=== PATIENT | female | born 1945 | race Caucasian/White ===

== ENCOUNTER 2018-10-02 14:10 | Observation (INO) | payer OTHER, BC ==
--- NOTE | 2018-10-02 14:57 | EDPHY ---
H & P Stated Complaint: High blood pressure, feels dehydrated and has nausea. Time Seen by Provider: 10/02/18 14:53 HPI/ROS: CHIEF COMPLAINT: Headache, nausea, vomiting HISTORY OF PRESENT ILLNESS: Patient is a 72-year-old man with a history of hypertension and high cholesterol who comes to the emergency department complaining of a mild headache for the last 2 days. She has also had nausea and began vomiting about an hour ago. She states that it is not the worst headache of her life but is close to it. It is been gradual in onset. She is here visiting from [place]. She presented to an urgent care this morning who supposed that symptoms were due to altitude sickness and treat her with Zofran. Patient states this made her feel temporarily better. She also noticed that her blood pressure was elevated this afternoon 180/100. She took an extra dose of her blood pressure medication as she has been started to do previously. Her blood pressure is now 130/80 but her symptoms are unchanged. She has been eating and drinking normally. She denies history of cardiac or pulmonary disease. No leg pain or leg swelling. No abdominal pain. No urinary or vaginal symptoms. No diarrhea. No fever. No recent trauma. No stroke-like symptoms or deficits. No dizziness. Severity: Moderate Modifying factors: None REVIEW OF SYSTEMS: Constitutional: denies: chills, fever, recent illness, recent injury EENTM: denies: blurred vision, double vision, nose congestion Respiratory: denies: cough, shortness of breath Cardiac: denies: chest pain, irregular heart rate, lightheadedness, palpitations Gastrointestinal/Abdominal: See HPI denies: abdominal pain, diarrhea, blood streaked stools Genitourinary: denies: dysuria, frequency, hematuria, pain Musculoskeletal: denies: joint pain, muscle pain Skin: denies: lesions, rash, jaundice, bruising Neurological: See HPI denies: numbness, paresthesia, tingling, dizziness, weakness Hematologic/Lymphatic: denies: blood clots, easy bleeding, easy bruising Immunologic/allergic: denies: HIV/AIDS, transplant 10 systems reviewed and negative except as noted EXAM: GENERAL: Moderate distress, nauseous, retching HEAD: Atraumatic, normocephalic. EYES: Pupils equal round and reactive to light, extraocular movements intact, sclera anicteric, conjunctiva are normal. ENT: TMs normal, nares patent, oropharynx clear without exudates. Moist mucous membranes. NECK: Normal range of motion, supple without lymphadenopathy or JVD. LUNGS: Breath sounds clear to auscultation bilaterally and equal. No wheezes rales or rhonchi. HEART: Regular rate and rhythm without murmurs, rubs or gallops. ABDOMEN: Soft, nontender, normoactive bowel sounds. No guarding, no rebound. No masses appreciated. BACK: No CVA tenderness, no spinal tenderness, step-offs or deformities EXTREMITIES: Normal range of motion, no pitting or edema. No clubbing or cyanosis. NEUROLOGICAL: Cranial nerves II through XII grossly intact. Normal speech, normal gait. 5/5 strength, normal movement in all extremities, normal sensation , normal reflexes PSYCH: Normal mood, normal affect. SKIN: Warm, dry, normal turgor, no visible rashes or lesions. Source: Patient, Family Exam Limitations: No limitations - Personal History Current Tetanus Diphtheria and Acellular Pertussis (TDAP): Yes - Medical/Surgical History Hx Asthma: No Hx Chronic Respiratory Disease: No Hx Diabetes: No Hx Cardiac Disease: No Hx Renal Disease: No Hx Cirrhosis: No Hx Alcoholism: No Hx HIV/AIDS: No Hx Splenectomy or Spleen Trauma: No Other PMH: HTN. High cholestral. 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, - Family History Significant Family History: No pertinent family hx - Social History Smoking Status: Never smoked Alcohol Use: None Drug Use: None Constitutional: Initial Vital Signs Temperature (C) 36.4 C 10/02/18 14:20 Heart Rate 89 10/02/18 14:20 Respiratory Rate 18 10/02/18 14:20 Blood Pressure 142/97 H 10/02/18 14:20 O2 Sat (%) 94 10/02/18 14:20 O2 Delivery Mode Room Air O2 (L/minute) 2 Allergies/Adverse Reactions: azithromycin Allergy (Verified 10/02/18 14:23) Home Medications: Medication Instructions Recorded Olmesartan/Hydrochlorothiazide 1 each PO DAILY 10/02/18 [Benicar Hct 40-12.5 mg Tablet] PARoxetine HCL [Paxil 20mg (*)] 20 mg PO DAILY 10/02/18 Pravastatin Sodium 40 mg PO DAILY 10/02/18 Medical Decision Making - Diagnostics EKG Interpretation: An EKG obtained and was read and documented in trace view. Please see trace view for full reading and report. Sinus rhythm, no acute ischemic changes Imaging Results: Imaging Impressions Head CT 10/02/18 15:00 Impression: 1. No significant intracranial abnormality seen. If symptoms worsen, additional imaging may be necessary. Findings discussed with biomedical scientist with Gary Mathis M.D. at 16:51 hour, 10/02/2018. Head CTA 10/02/18 15:03 Impression: 1. Mild calcified plaque formation involving the carotid bulb bilaterally without significant encroachment upon the lumen. 2. Normal CT angiogram of the crow of [place] with normal variation, as detailed above. 3. Tortuosity of the left mid ICA Note: All calculations were performed using NASCET criteria. Findings discussed with the biomedical scientist with Gary Mathis M.D. at 17 :00 hour, 10/02/2018. Neck CTA 10/02/18 15:03 Impression: 1. Mild calcified plaque formation involving the carotid bulb bilaterally without significant encroachment upon the lumen. 2. Normal CT angiogram of the crow of [place] with normal variation, as detailed above. 3. Tortuosity of the left mid ICA Note: All calculations were performed using NASCET criteria. Findings discussed with the biomedical scientist with Gray Mathis M.D. at 17 :00 hour, 10/02/2018. Imaging: Discussed imaging studies w/ call center consultant Radiologist ED Course/Re-evaluation: Patient's sodium is significantly lowered. She is receiving IV fluids. Will turn down the rate. Will add potassium and magnesium. 4:55 p.m. I discussed the case with Dr. Gaitan who will admit. Differential Diagnosis: Partial list of the Differential diagnosis considered include but were not limited to; hyponatremia, hemorrhage, mass and although unlikely based on the history and physical exam, I also considered obstruction, ischemia, volvulus, hypertensive urgency. - Data Points Laboratory Results: Laboratory Results 10/02/18 14:50 10/02/18 14:50 10/02/18 10/02/18 14:50 14:50 WBC 9.20 10^3/uL 10^3/uL (3.80-9.50) RBC 4.15 10^6/uL L 10^6/uL (4.18-5.33) Hgb 12.6 g/dL g/dL (12.6-16.3) Hct 35.9 % L % (38.0-47.0) MCV 86.5 fL fL (81.5-99.8) MCH 30.4 pg pg (27.9-34.1) MCHC 35.1 g/dL g/dL (32.4-36.7) RDW 12.0 % % (11.5-15.2) Plt Count 321 10^3/uL 10^3/uL (150-400) MPV 8.8 fL fL (8.7-11.7) Neut % (Auto) 75.0 % H % (39.3-74.2) Lymph % (Auto) 16.3 % % (15.0-45.0) [place] % (Auto) 7.7 % % (4.5-13.0) Eos % (Auto) 0.4 % L % (0.6-7.6) Baso % (Auto) 0.2 % L % (0.3-1.7) Nucleat RBC Rel Count 0.0 % % (0.0-0.2) Absolute Neuts (auto) 6.89 10^3/uL H 10^3/uL (1.70-6.50) Absolute Lymphs (auto) 1.50 10^3/uL 10^3/uL (1.00-3.00) Absolute Monos (auto) 0.71 10^3/uL 10^3/uL (0.30-0.80) Absolute Eos (auto) 0.04 10^3/uL 10^3/uL (0.03-0.40) Absolute Basos (auto) 0.02 10^3/uL 10^3/uL (0.02-0.10) Absolute Nucleated RBC 0.00 10^3/uL 10^3/uL (0-0.01) Immature Gran % 0.4 % % (0.0-1.1) Immature Gran # 0.04 10^3/uL 10^3/uL (0.00-0.10) Sodium 126 mEq/L L mEq/L (135-145) Potassium 3.3 mEq/L L mEq/L (3.5-5.2) Chloride 91 mEq/L L mEq/L (97-110) Carbon Dioxide 25 mEq/l mEq/l (22-31) Anion Gap 10 mEq/L mEq/L (6-14) BUN 6 mg/dL L mg/dL (7-23) Creatinine 0.6 mg/dL mg/dL (0.6-1.0) Estimated GFR > 60 Glucose 119 mg/dL H mg/dL (70-100) Calcium 9.1 mg/dL mg/dL (8.5-10.4) Medications Given: Acetaminophen (Tylenol) 650 mg PO Q4HRS PRN PRN Reason: Pain, Mild/Fever, Can Take PO Stop: 03/31/19 17:20 Last Admin: 10/02/18 21:25 Dose: 650 mg Promethazine HCl (Phenergan) 6.25 mg IVP Q6HRS PRN PRN Reason: Nausea/Vomiting, Use 2nd Stop: 03/31/19 17:20 Last Admin: 10/02/18 21:25 Dose: 6.25 mg Discontinued Medications Haloperidol Lactate (Haldol Injection) 2.5 mg IVP EDNOW ONE Stop: 10/02/18 16:38 Last Admin: 10/02/18 16:37 Dose: 2.5 mg Sodium Chloride (Ns) 1,000 mls @ 0 mls/hr IV ONCE ONE; Wide Open PRN Reason: Protocol Stop: 10/02/18 14:59 Last Admin: 10/02/18 15:12 Dose: 1,000 mls Magnesium Sulfate (Magnesium Sulf 2 Gm (Premix)) 50 mls @ 50 mls/hr IV EDNOW ONE Stop: 10/02/18 16:28 Last Admin: 10/02/18 16:38 Dose: 50 mls Potassium Chloride (Potassium Cl 20 Meq (Premix)) 100 mls @ 50 mls/hr IV EDNOW ONE Stop: 10/02/18 17:28 Last Admin: 10/02/18 20:37 Dose: Not Given Potassium Chloride (Potassium Cl 10 Meq (Premix)) 100 mls @ 100 mls/hr IV Q1H HARVINDER Stop: 10/02/18 18:14 Last Admin: 10/02/18 19:33 Dose: 100 mls Metoclopramide HCl (Reglan Injection) 10 mg IVP EDNOW ONE Stop: 10/02/18 14:59 Last Admin: 10/02/18 15:12 Dose: 10 mg Departure - Departure Disposition: [facility] Acute Clinical Impression: Hyponatremia Vomiting Qualifiers: Vomiting type: unspecified Vomiting Intractability: unspecified Nausea presence : unspecified Qualified Code(s): R11.10 - Vomiting, unspecified Condition: Fair
[2018-10-02] MEDS ORDERED: NS 1,000 ML IV ONE (14:58)
[2018-10-02] MEDS ORDERED: METOCLOPRAMIDE 10 MG/2 ML VIAL IVP ONE (14:58)
[2018-10-02 15:15] LABS: PLATELET COUNT 321 10^3/uL (150-400)
[2018-10-02] MEDS ORDERED: MAGNESIUM SULF 2 GM/WATER 50 ML IV ONE (15:29)
[2018-10-02] MEDS ORDERED: POTASSIUM Cl (KCl) 100 ML IV ONE (15:29)
[2018-10-02] MEDS ORDERED: IOPAMIDOL (ISOVUE-370) 150 ML BTL IV ONE (15:32)
--- NOTE | 2018-10-02 15:41 | CPEKG ---
Test Reason : OPEN Blood Pressure : / mmHG Vent. Rate : 084 BPM Atrial Rate : 084 BPM P-R Int : 200 ms QRS Dur : 098 ms QT Int : 394 ms P-R-T Axes : 028 079 058 degrees QTc Int : 466 ms Sinus rhythm Confirmed by Alma Rosa Orozco ([id number]) on 10/02/2018 3:40:31 PM Referred By: ALMA ROSA OROZCO Confirmed By:Alma Rosa Orozco
[2018-10-02] MEDS ORDERED: HALOPERIDOL LACT 5 MG/ML INJ ONE (16:34)
[2018-10-02] MEDS ORDERED: HALOPERIDOL LACT 5 MG/ML INJ IVP ONE (16:37)
[2018-10-02] MEDS ORDERED: ONDANSETRON DISINTEGRATING 4 MG TAB PO PRN (17:21)
[2018-10-02] MEDS ORDERED: ONDANSETRON 4 MG/2 ML VIAL IVP PRN (17:21)
[2018-10-02] MEDS: POTASSIUM Cl (KCl) 100 ML IV SCH ×2 (18:13→19:33)
--- NOTE | 2018-10-02 19:01 | GHP ---
[f rep st] HISTORY AND PHYSICAL DATE OF ADMISSION: 10/02/2018 SUBJECTIVE: The patient is a 72-year-old female with a history of hypertension who traveled from [place], [place], with family. She has been to [place] before but not in a couple of decades it sounds li ke. She has been plagued by a bit of nausea. She has been drinking water but eating poorly. She ta kes a thiazide diuretic. She came in today because of headache, feeling dizziness. There has been n o trauma. She was found have a sodium of 126. She was never told she had hyponatremia before. Atif tional meaningful history, she takes an SSRI and a thiazide diuretic. REVIEW OF SYSTEMS: Complete 10-point review of systems conducted and negative, except as noted in th e HPI. 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 ALLERGIES: Azithromycin which vomiting. MEDICATIONS: Losartan/hydrochlorothiazide, paroxetine, pravastatin. SOCIAL HISTORY: No tobacco, no alcohol. Lives in [place]. FAMILY HISTORY: Parents . PHYSICAL EXAMINATION: VITAL SIGNS: Temp 36.4, blood pressure 142/97, pulse 89, breathing 18 times a minute, 94% on room air. GENERAL: No acute distress. HEENT: Sclerae anicteric. Oropharynx clear . Mucous membranes moist. NECK: Supple without lymphadenopathy or JVD. LUNGS: Clear to auscultat ion bilaterally. HEART: S1, S2. ABDOMEN: Soft, nontender, nondistended. LOWER EXTREMITIES: No e roberto. Calves nontender. SKIN: Without rash. NEUROLOGIC: Nonfocal. LABORATORY DATA: White count 9, hematocrit 36, platelets are 321,000. Sodium 126, potassium 3.3, ch loride 91, bicarb 25, BUN 6, creatinine 0.6, glucose 119. EKG interpreted by me shows sinus at 84 wi th normal axis, intervals, no ST or T-wave changes. She had a noncontrast head CT that is unremarkab le. Head and neck CTA that shows some calcification, no flow-limiting stenoses. I discussed the yesenia e with Dr. Gary Mathis. ASSESSMENT/PLAN: A 72-year-old female who presents with hyponatremia. 1. Hyponatremia. Poor solute intake in the setting of thiazide diuretic and the patient also takes an SSRI which lead to . It sounds like she had a L of normal saline in the emergency depar tment. I have ordered a repeat sodium now. Will hold her thiazide. I have checked urine osmoles. 2. If her sodium has risen to greater than 131 ,we will start some low rate hypotonic fluids such as half-normal saline at 75. We will follow up q.8. I think this is probably responsible for her symp toms. 3. Hypertension. We will follow. 4. Query altitude sickness. The patient has headache and nausea. She does not have any cardiopulmo nary disease, which is common to see in people who have altitude sickness at 5000 feet. However, we will give her some p.r.n. nausea medicines. I will not start Diamox. 5. Hypoxemia. 89% on room air in the emergency department. We will follow prophylaxis, SCDs. DISPOSITION: Observation. /[id number]/MODL
[2018-10-02] MEDS: PROMETHAZINE HCL 25 MG/ML INJ IVP PRN (21:25)
[2018-10-02] MEDS: ACETAMINOPHEN 325 MG TAB PO PRN (21:25)
[2018-10-03] MEDS: PROMETHAZINE HCL 25 MG/ML INJ IVP PRN (03:25)
[2018-10-03] MEDS: ACETAMINOPHEN 325 MG TAB PO PRN ×2 (03:32→09:31)
[2018-10-03] MEDS ORDERED: POTASSIUM CL 20 MEQ TAB PO ONE (05:22)
[2018-10-03 07:13] VITALS: BP 134/80
--- NOTE | 2018-10-03 08:56 | HOSPPROG ---
Hospitalist Progress Note Assessment/Plan: 72 yo F w acute hyponatremia resolving home see dc summary Subjective: sodium trending up. feels sig better Objective: Vital Signs Temp Pulse Resp BP Pulse Ox 36.5 C 81 18 134/80 H 97 10/03/18 07:12 10/03/18 07:12 10/03/18 07:12 10/03/18 07:12 10/03/18 07:12 Laboratory Results 10/03/18 04:10 10/02/18 10/03/18 10/04/18 05:59 05:59 05:59 Intake Total 1350 Output Total 550 Balance 800 - Physical Exam Constitutional: no apparent distress, appears nourished Eyes: PERRL, anicteric sclera Ears, Nose, Mouth, Throat: moist mucous membranes, hearing normal Cardiovascular: regular rate and rhythym, no murmur, rub, or gallop Respiratory: no respiratory distress, no rales or rhonchi Gastrointestinal: normoactive bowel sounds, soft, non-tender abdomen Genitourinary: no bladder fullness, No marcano in urethra Skin: warm, normal color Musculoskeletal: full muscle strength ICD10 Worksheet Patient Problems: Problems Problem Status Onset Hyponatremia Acute Vomiting Acute
[2018-10-03] MEDS ORDERED: PRAVASTATIN SODIUM 40 MG TAB PO SCH (09:00)
[2018-10-03] MEDS ORDERED: PARoxetine HCL 20 MG TAB PO SCH (09:00)
--- NOTE | 2018-10-03 09:19 | ASDISCHSUM ---
Discharge Information Plan Status:Home with No Needs Medically Cleared to Leave:10/03/2018 Discharge Date:10/03/2018 CM D/C Disposition:Home, Routine, Self-Care ADT D/C Disposition: Projected Discharge Date:10/03/2018 Transportation at D/C:Family Discharge Delay Reason: Follow-Up Date:10/03/2018 Discharge Slot: Final Diagnosis: Placement Information Patient Contact Information Contact Name:BRYANNA Relationship:Daughter Address: Work Phone: City:[place] Alternate Phone: [facility] [address]/Zip Code:[place] Email: Financial Information Financial Class:Medicare Primary Plan Desc:MEDICARE OUTPATIENT Primary Plan Number:[id number] Secondary Plan Desc: OUT OF STATE [facility] Secondary Plan Number:[id number] Assessment Information LACE LACE Length of stay for Answers: Less than 1 day current admission Acuity / Level of Answers: No Care: Did the patient have an inpatient admission? Comorbidities - select Answers: Other Notes: HTN; HLD all that apply # of Emergency department Answers: 1-2 visits in the last 6 months Social determinants Answers: Mental health diagnosis (anxiety, depression, pers onality disorders, etc.) Score: 5 Date Signed: 10/03/2018 09:18 AM Electronically Signed By:Lalita Dorantes RN Intervention Information
--- NOTE | 2018-10-03 09:48 | GDS ---
[f rep st] DISCHARGE SUMMARY DISCHARGE DIAGNOSES: 1. Acute hyponatremia. 2. Hypertension. 3. Nausea. 4. Headache. Please see admission history and physical by Dr. Lionel Gaitan. The patient presented with symptoms of nausea and headache. She had neuroimaging that was unremarkable in the emergency department. Mary diaz was found have a sodium of 126. She takes an SSRI and a thiazide diuretic. She had had poor p.o. intake other than water. Urine study showed a high urine sodium of 99 and a concentrated urine at 50 5. With fluid restriction and discontinuation of her hydrochlorothiazide, her sodium ben to 130. H er baseline is unknown. She feels well and ready for discharge. I suspect the etiology is poor p.o. intake plus extra urinary losses, perhaps with a component of GILA DH given her SSRI and high urine osmoles. She is discharged home on unchanged medication list with t he exception of discontinuing her olmesartan/hydrochlorothiazide and giving a prescription for olmesa rtan only. Patient and family demonstrated understanding of the plan. /[id number]/MODL
== END 2018-10-03 11:00 | disposition home or self-care (01) ==
LOC: F2W 20:45
PROVIDERS: ADMIT Internal Medicine; ATTEND Internal Medicine
DX: E87.1 Hypo-osmolality and hyponatremia (principal); I10 Essential (primary) hypertension; R11.0 Nausea; R51 Headache; Z85.79 Personal history of other malignant neoplasms of lymphoid, hematopoietic and related tissues; E78.5 Hyperlipidemia, unspecified; F32.9 Major depressive disorder, single episode, unspecified
CPT/HCPCS: 70450; 70496; 70498; 93005; 96361; 96365; 96366; 96367; 96368; 96375; 96376; 99285; G0378; J1630; J2550; J2765; J3475; J3480; Q9967